=== PATIENT | male | born 1980 | race Caucasian/White ===

== ENCOUNTER 2019-11-07 17:10 | Emergency (ER) | payer OTHER ==
[~2019-11-07] VITALS: Ht 160 cm; Wt 72.6 kg
[2019-11-07 17:19] VITALS: BP 130/92
[2019-11-07 17:46] LABS: APPEARANCE,URINE Clear (CLEAR); BILIRUBIN,URINE Negative (NEGATIVE); BLOOD, URINE Moderate Ery/uL (NEGATIVE); COLOR,URINE Yellow (YELLOW); KETONES,URINE Negative (NEGATIVE); LEUKOCYTE ESTERASE ,URINE Negative (NEGATIVE); NITRITE, URINE Negative (NEGATIVE); PH,URINE 5.5 (5.0-8.0); PROTEIN,URINE Negative (NEGATIVE); UGLUCOSE Negative (NEGATIVE); UROBILINOGEN,URINE 0.2 EU/dL (0.2)
[2019-11-07 17:56] LABS: BACTERIA,URINE None seen /HPF (None Seen); SQUAMOUS EPITHELIAL CELL,UR Few /HPF (None Seen); WBC,URINE 0-2 /HPF (0-3)
[2019-11-07] MEDS ORDERED: AZITHROMYCIN 250 MG TABLET ONE (17:57)
[2019-11-07] MEDS ORDERED: CEFTRIAXONE 500 MG VIAL ONE (17:59)
[2019-11-07] MEDS ORDERED: CEFTRIAXONE 1 G VIAL IM ONE (18:00)
[2019-11-07] MEDS ORDERED: AZITHROMYCIN 250 MG TABLET PO ONE (18:00)
== END 2019-11-07 19:00 | disposition home or self-care (01) ==
LOC: ER 17:15
DX: Z20.2 Contact with and (suspected) exposure to infections with a predominantly sexual mode of transmission (principal)
CPT/HCPCS: 36415; 81001; 87086; 96372; 99283; J0696; 81000-TC

== ENCOUNTER 2019-12-11 21:07 | Emergency (ER) | payer OTHER ==
[~2019-12-11] VITALS: Ht 160 cm; Wt 77.1 kg
[2019-12-11 21:38] VITALS: BP 129/77
[2019-12-11] MEDS ORDERED: HYDROCODONE/APAP 5/325MG 1 EACH TABLET ONE (21:49)
[2019-12-11] MEDS ORDERED: IBUPROFEN 400 MG TABLET ONE (21:49)
[2019-12-11] MEDS ORDERED: IBUPROFEN 400 MG TABLET PO ONE (22:00)
[2019-12-11] MEDS ORDERED: HYDROCODONE/APAP 5/325MG 1 EACH TABLET PO ONE (22:00)
--- NOTE | 2019-12-11 22:00 | NUR ---
PT WAS INSTRUCTED NOT TO DRIVE.
== END 2019-12-11 22:00 | disposition home or self-care (01) ==
LOC: ER 21:10
DX: M54.5 Low back pain (principal); G89.29 Other chronic pain; F17.210 Nicotine dependence, cigarettes, uncomplicated

== ENCOUNTER 2020-09-06 19:20 | Emergency (ER) | payer OTHER ==
[~2020-09-06] VITALS: Ht 160 cm; Wt 74.8 kg
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
[2020-09-06] MEDS ORDERED: MORPHINE SULFATE INJ 4 MG/ML DISP.SYRIN ONE (20:11)
[2020-09-06] MEDS ORDERED: ONDANSETRON HCL/PF 4 MG/2 ML VIAL ONE (20:11)
--- NOTE | 2020-09-06 20:19 | NUR ---
BLOOD COLLECTED AND SENT TO LAB
--- NOTE | 2020-09-06 20:19 | NUR ---
IV LINE ESTABLISHED 18 G
[2020-09-06 20:28] LABS: BILIRUBIN,URINE NEGATIVE (NEGATIVE); BLOOD, URINE SMALL Ery/uL (NEGATIVE); COLOR,URINE YELLOW (YELLOW); LEUKOCYTE ESTERASE ,URINE NEGATIVE (NEGATIVE); NITRITE, URINE NEGATIVE (NEGATIVE); PH,URINE 5.5 (5.0-8.0); PROTEIN,URINE NEGATIVE (NEGATIVE); UGLUCOSE NEGATIVE (NEGATIVE); UROBILINOGEN,URINE 0.2 EU/dL (0.2)
[2020-09-06 20:29] LABS: BASOPHILS % (AUTO) 0.5 % (0.0-2.0); HEMATOCRIT 42 % (39-51); HEMOGLOBIN 14.3 g/dL (13.5-17.5); LYMPHOCYTES # (AUTO) 2.7 /CMM (0.8-4.8); MEAN CORPUSCULAR HGB CONC 34 g/dl (31.0-36.0); MEAN CORPUSCULAR VOLUME 87 fL (80-96); MONOCYTES # (AUTO) 0.6 /CMM (0.1-1.30); MONOCYTES % (AUTO) 7.6 % (2.0-12.0); NEUTROPHILS # (AUTO) 3.8 /CMM (1.8-8.9); NEUTROPHILS % (AUTO) 48.9 % (43.0-81.0); PLATELET COUNT (AUTO) 256 /CMM (150-450); RED BLOOD CELL COUNT(AUTO) 4.88 MIL/uL (4.5-6.0); WHITE BLOOD COUNT (AUTO) 7.7 K/uL (4.3-11.0)
[2020-09-06] MEDS ORDERED: IV NS 0.9% 1,000 ML BAG IV ONE (20:30)
[2020-09-06] MEDS ORDERED: ONDANSETRON HCL/PF 4 MG/2 ML VIAL IVP ONE (20:30)
[2020-09-06] MEDS ORDERED: MORPHINE SULFATE INJ 2 MG/ML DISP.SYRIN IV ONE (20:30)
--- NOTE | 2020-09-06 20:32 | NUR ---
XRAY AT BEDSIDE
[2020-09-06] MEDS ORDERED: KETOROLAC TROMETHAMINE INJ 30 MG/ML VIAL IV ONE (21:00)
[2020-09-06] MEDS ORDERED: KETOROLAC TROMETHAMINE INJ 30 MG/ML VIAL ONE (21:01)
[2020-09-06 21:28] LABS: CALCIUM, SERUM 8.9 mg/dL (8.5-10.1); CREATININE 1.1 mg/dL (0.6-1.3); POTASSIUM 3.9 mmol/L (3.5-5.1)
[2020-09-06 21:48] LABS: BILIRUBIN,DIRECT 0.1 mg/dL (0.0-0.2); BILIRUBIN,TOTAL 0.2 mg/dL (0.2-1.0); TOTAL PROTEIN, SERUM 7.5 g/dL (6.4-8.2)
--- NOTE | 2020-09-06 22:24 | NUR ---
IV removed. Catheter intact and site benign. Pressure and 4x4 applied to site. No bleeding noted. Patient discharged to home in stable condition. Written and verbal after care instructions given. Patient verbalizes understanding of instruction.
[2020-09-06 22:27] VITALS: BP 132/61
== END 2020-09-06 22:28 | disposition home or self-care (01) ==
LOC: ER 19:25
DX: R10.11 Right upper quadrant pain (principal)
CPT/HCPCS: 36415; 71045; 80048; 80076; 81001; 83690; 85025; 96361; 96374; 96375; 99284; J1885; J2270; J2405; J7030

== ENCOUNTER 2021-01-20 17:38 | Emergency (ER) | payer OTHER ==
[~2021-01-20] VITALS: Ht 162.6 cm; Wt 77.1 kg
--- NOTE | 2021-01-20 17:51 | NUR ---
patient came in to the er c/o back pain s/p tripped and fall this morning, 7/10 pain scale. on room air, breathing evenly and unlabored. kept comfortable, will continue to monitor accordingly.
[2021-01-20] MEDS ORDERED: ONDANSETRON 4 MG TAB.RAPDIS PO ONE (18:00)
[2021-01-20] MEDS ORDERED: MORPHINE SULFATE INJ 2 MG/ML DISP.SYRIN IM ONE (18:00)
[2021-01-20] MEDS ORDERED: MORPHINE SULFATE INJ 2 MG/ML DISP.SYRIN ONE (18:22)
[2021-01-20] MEDS ORDERED: ONDANSETRON 4 MG TAB.RAPDIS ONE (18:22)
[2021-01-20] MEDS ORDERED: IBUP-1955 PO (18:29)
[2021-01-20] MEDS ORDERED: CYCL10TA9 PO (18:29)
[2021-01-20 18:46] VITALS: BP 132/71
--- NOTE | 2021-01-20 18:47 | NUR ---
Patient discharged to home in stable condition. Written and verbal after care instructions given. Patient verbalizes understanding of instruction.
== END 2021-01-20 18:47 | disposition home or self-care (01) ==
LOC: ER 17:39
DX: S39.012A Strain of muscle, fascia and tendon of lower back, initial encounter (principal); F17.200 Nicotine dependence, unspecified, uncomplicated; Z79.899 Other long term (current) drug therapy; W01.0XXA Fall on same level from slipping, tripping and stumbling without subsequent striking against object, initial encounter; Y93.89 Activity, other specified; Y92.89 Other specified places as the place of occurrence of the external cause; Y99.8 Other external cause status
CPT/HCPCS: 72110; 96372; 99283; J2270; Q0162

== ENCOUNTER 2021-07-12 09:07 | Emergency (ER) | payer OTHER ==
[~2021-07-12] VITALS: Ht 160 cm; Wt 78.9 kg
[~2021-07-12 09:07] MED LIST: CYCL10TA9 PO; IBUP-1955 PO
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
[2021-07-12] MEDS ORDERED: TRAMADOL HCL 50 MG TABLET PO ONE (10:00)
[2021-07-12] MEDS ORDERED: CYCLOBENZAPRINE 10 MG TABLET PO ONE (10:00)
[2021-07-12] MEDS ORDERED: KETOROLAC TROMETHAMINE INJ 30 MG/ML VIAL IM ONE (10:00)
[2021-07-12] MEDS ORDERED: KETOROLAC TROMETHAMINE INJ 30 MG/ML VIAL ONE (10:10)
[2021-07-12] MEDS ORDERED: CYCLOBENZAPRINE 10 MG TABLET ONE (10:10)
[2021-07-12] MEDS ORDERED: TRAMADOL HCL 50 MG TABLET ONE (10:10)
--- NOTE | 2021-07-12 10:19 | NUR ---
THE PATIENT IS TAKEN TO CT
--- NOTE | 2021-07-12 10:25 | NUR ---
THE PATIENT IS BACK FROM CT
[2021-07-12] MEDS ORDERED: TRAM-351 PO (10:55)
[2021-07-12] MEDS ORDERED: IBUP-1957 PO (10:55)
[2021-07-12 11:24] VITALS: BP 126/81
--- NOTE | 2021-07-12 11:24 | NUR ---
Patient discharged to home in stable condition. Written and verbal after care instructions given. Patient verbalizes understanding of instruction.
== END 2021-07-12 11:25 | disposition home or self-care (01) ==
LOC: ER 09:17
DX: S39.012A Strain of muscle, fascia and tendon of lower back, initial encounter (principal); F17.200 Nicotine dependence, unspecified, uncomplicated; Z79.899 Other long term (current) drug therapy; V49.49XA Driver injured in collision with other motor vehicles in traffic accident, initial encounter; Y93.89 Activity, other specified; Y92.413 State road as the place of occurrence of the external cause; Y99.8 Other external cause status
CPT/HCPCS: 74176; 99284; J1885